=== PATIENT | female | born 1960 | race Caucasian/White ===

== ENCOUNTER 2021-03-12 13:15 | Inpatient (IN) | payer MEDICARE, MEDICAID, SELFPAY ==
[2021-03-12] VITALS (7 sets, daily range): BP systolic 100–161; BP diastolic 55–85; PULSE 65–90; RESP 18–28; TEMP 36.7–39.6; O2SAT 92–96; BMI 61.5
--- NOTE | ~2021-03-12 | XR_ITS ---
EXAMINATION: XR chest 1V portable DATE: 03/12/2021 14:25 INDICATION: Cough. TECHNIQUE: A single frontal view of the chest was obtained. COMPARISON: Chest single view 02/27/2017, chest CT 02/26/2017 FINDINGS: There are airspace opacities in all lung zones bilaterally. No pleural effusion or pneumoth orax. Cardiomegaly is noted. IMPRESSION: 1. Diffuse lung disease, consistent with pulmonary edema versus pneumonia. 2. Cardiomegaly. Reviewed, dictated and finalized at location A. RUMENT MAN
--- NOTE | ~2021-03-12 | CT_ITS ---
EXAMINATION: CTA chest PE protocol EXAM DATE: 03/12/2021 17:28 INDICATION: Pulmonary emboli. Low oxygen saturation. COVID pneumonia. TECHNIQUE: Spiral CTA of the chest (pulmonary arteries) was performed with 100 cc Omnipaque 350 intr avenous contrast injection. Images were acquired during the pulmonary arterial phase. Coronal maxi mum intensity projection 3D-reconstructions were created by the technologist on dedicated workstation . Axial, coronal and sagittal reformatted images were reviewed. The dose-length product (DLP) for t his examination was 1080.02 mGy-cm. The exposure was tailored according to patient size (auto mA ex posure control), and iterative reconstruction (ASIR) was used as additional dose reduction technique. Comparison is made to prior examination from 02/21/2017. FINDINGS: The main, central pulmonary arteries are dilated which can indicate elevated pulmonary cara rial pressure, pulmonary arterial hypertension. There are no pulmonary emboli in the 1st through 3r d order (central and interlobar) pulmonary arteries. Some loss of attenuation in the segmental pulmo nary arteries from respiratory motion, some segmental regions not confidently evaluated. No intralumi nal filling defects identified. No thoracic aortic dissection. Diffuse groundglass airspace diseas e, appearance is consistent with acute COVID pneumonia. There are no pleural or pericardial effusion s. Tracheobronchial tree is patent. There is no mediastinal, hilar or axillary lymphadenopathy. There is no pneumothorax. There is mild cardiomegaly. No evidence of coronary arterial calcificat ion. Cholecystectomy clips. There is mild to moderate thoracic spondylosis without osteoblastic or osteolytic lesions identified. IMPRESSION: 1. Diffuse COVID pneumonia. 2. No pulmonary emboli suspected. 3. Cardiomegaly and dilated pulmonary arteries. Reviewed, dictated and finalized at location A. LE DISPLAY PREPARER
--- NOTE | 2021-03-12 13:31 | ECG_ITS ---
Measurements Intervals [place] Rate: 81 P: 34 WI: 163 QRS: 53 QRSD: 94 T: 19 QT: 374 QTc: 435 Interpretive Statements SINUS RHYTHM BORDERLINE ST-T WAVE ABNORMALITY- INFERIOR LEADS BASELINE ARTIFACT- I, II, III, AVR, AVF, V1 BORDERLINE ECG Electronically Signed On 03-12-2021 17:35:57 HURL SHAKER by Jordon Lancaster D.O.
--- NOTE | 2021-03-12 14:56 | ED.GENADULT ---
HPI - General Adult General Chief complaint: Shortness of Breath/Dyspnea Stated complaint: COVID+ Time Seen by Provider: 03/12/21 13:26 Source: RN notes reviewed History of Present Illness HPI narrative: Patient presents emergency department from [facility] via EMS for shortness of breath. Patient was diagnosed with COVID-19 on March 07 she was noted to be hypoxic on room air today. Patient states she has been feeling short of breath and notes generalized body aches denies any chest pain abdominal pain nausea vomiting patient did not take any Tylenol today Related Data Allergies Allergy/AdvReac Type Severity Reaction Status Date / Time Cephalosporins Allergy Unknown Unknown Verified 03/12/21 18:50 nitrofurantoin Allergy Unknown Unknown Verified 03/12/21 18:50 nitroglycerin Allergy Unknown Unknown Verified 03/12/21 18:50 Penicillins Allergy Unknown Unknown Verified 03/12/21 18:50 Phenothiazines Allergy Unknown Unknown Verified 03/12/21 18:50 promethazine Allergy Unknown Unknown Verified 03/12/21 18:50 [place] Allergy Unknown Unknown Uncoded 03/12/21 18:50 Review of Systems Review of Systems: Gen.: Denies fevers or chills ENT: Denies congestion Respiratory: See HPI CV: Denies chest pain or palpitations GI: Denies abdominal pain nausea, emesis or diarrhea Musculoskeletal: Denies back pain or muscle pain Neuro: Denies numbness, tingling, weakness or focal weakness Skin: Denies rash Except as documented, all other systems reviewed and negative [facility] Past Medical History Medical History (Updated 03/12/21 @ 18:07 by Alexei Lima DO) CHF (congestive heart failure) Schizophrenia Social History Social History (Updated 03/12/21 @ 14:57 by Alexei Lima DO) Smoking status: Never smoker Exam Narrative: APPEARANCE: No acute distress, nontoxic, resting in bed EYES: EOMI HEENT: Normocephalic, atraumatic, OMM RESPIRATORY: No respiratory distress coarse breath sounds throughout the bilateral lung la CARDIOVASCULAR: Regular rate and rhythm without murmurs rubs or gallops. ABDOMINAL: Soft, nontender, nondistended, no rebound or guarding MUSCULOSKELETAl: Moves all extremities. No clubbing, cyanosis or edema. NEURO: Awake and alert x 1. Following commands, speech normal, no focal deficits SKIN:: Warm, dry. No rashes lesions or abrasions PSYCHIATRIC: Normal affect/mood, Course Course Emergency Course: Patient on 9 L nasal cannula the patient does intermittently try to take off her oxygen I discussed with the patient the need to keep her oxygen on Patient is temperature is downtrending but continues to have low-grade temp we will give Toradol at this time Discussed with patient's sister and updated Discussed with Dr. Wright presentation work-up agrees with admission at this time. Agrees with plan start patient on Decadron as well as remdesivir Discussed with patient and family results of workup and diagnosis. Discussed need for admission. Patient and family understand and agree to current treatment plan Vital Signs Vital signs: Vital Signs Temperature 103.2 F H 03/12/21 13:48 Pulse Rate 90 03/12/21 13:48 Respiratory Rate 28 H 03/12/21 13:48 Blood Pressure 146/55 H 03/12/21 13:48 Pulse Oximetry 95 03/12/21 13:48 Temperature 100.7 F H 03/12/21 18:34 Pulse Rate 74 03/12/21 18:34 Respiratory Rate 28 H 03/12/21 18:34 Blood Pressure 124/79 03/12/21 18:34 Pulse Oximetry 95 03/12/21 18:34 Medical Decision Making Vital Signs Vital Signs: Vital Signs Temperature 103.2 F H 03/12/21 13:48 Pulse Rate 90 03/12/21 13:48 Respiratory Rate 28 H 03/12/21 13:48 Blood Pressure 146/55 H 03/12/21 13:48 Pulse Oximetry 95 03/12/21 13:48 Temperature 100.7 F H 03/12/21 18:34 Pulse Rate 74 03/12/21 18:34 Respiratory Rate 28 H 03/12/21 18:34 Blood Pressure 124/79 03/12/21 18:34 Pulse Oximetry 95 03/12/21 18:34 Lab Data Result diagrams: 03/12/21 14:57
[2021-03-12 15:12] LABS: Basophils Percent Auto 0.4 % (0.2-1.2); Hematocrit 39.9 % (37.0-47.0); Hemoglobin 11.9 g/dL (12.0-15.0); Immature Granulocyte Absolute 0.06 K/mm3 (0.00-0.031); Immature Granulocyte Percent A 0.8 % (0-0.5); Lymphocytes Percent Auto 8.2 % (18.3-44.2); Mean Corpuscular HGB Conc 29.8 g/dl (32-36); Mean Corpuscular Hemoglobin 26.5 pg (26-34); Mean Corpuscular Volume 88.9 fl (80-100); Mean Platelet Volume 11.8 fl (7.4-10.4); Monocytes Absolute Auto 0.3 K/mm3 (0.1-0.6); Monocytes Percent Auto 3.4 % (2.6-8.5); Neutrophils Absolute Auto 6.4 K/mm3 (1.3-6.7); Neutrophils Percent Auto 87.2 % (45.5-73.1); Platelet Count Result 122 k/mm3 (150-375); Red Blood Count 4.49 M/mm3 (4.2-5.4); Red Cell Distribution Width 15.9 % (11.5-14.5); White Blood Count 7.4 K/mm3 (4.5-10.0)
[2021-03-12 15:24] LABS: INR 1.1
[2021-03-12 15:25] LABS: Partial Thromboplastin Time 37.4 SECONDS (22.3-36.8)
[2021-03-12 15:27] LABS: Hypochromasia 1+ (NORMAL); Platelet Estimate Decreased (Adequate)
[2021-03-12 15:28] LABS: Ovalocytes 1+ (NORMAL)
[2021-03-12 15:40] LABS: D Dimer 2.47 ug/mL (<0.48)
[2021-03-12 16:01] LABS: Alanine Aminotransferase 21 U/L (4-35); Albumin Level 3.4 g/dL (3.5-5.1); Alkaline Phosphatase 72 U/L (38-126); Anion Gap 5 mmol/L (8-16); Aspartate Amino Transferase 45 U/L (14-36); Bilirubin,Total 0.4 mg/dL (0.2-1.3); Blood Urea Nitrogen 21 mg/dL (7-17); CRP 28.8 mg/dL (<1.0); Calcium 8.1 mg/dL (8.4-10.2); Carbon Dioxide 32 mmol/L (22-30); Chloride 103 mmol/L (98-107); Estimated CRCL calculation 86 ml/min; Estimated Glomerular Filt Rate > 60; Glucose 96 mg/dL (65-110); Lactate Dehydrogenase 1148 U/L (313-618); Potassium 3.9 mmol/L (3.4-5.0); Sodium 140 mmol/L (137-145)
[2021-03-12] MEDS: KETOROLAC 30 MG/ML VIAL (*BKC) IV PUSH (19:36)
[2021-03-12] MEDS: REMDESIVIR 200 MG/NS 250 ML 200 MG/250 ML BAG 250 MG IVPB (21:38)
[2021-03-13] VITALS (7 sets, daily range): BP systolic 108–143; BP diastolic 56–72; PULSE 52–72; RESP 16–22; TEMP 36.1–37; O2SAT 88–95
--- NOTE | 2021-03-13 | ECHO_ITS ---
Patient Info Name: Sammie Saenz Age: 60 years : 1960 Gender: Female Ht: 62 in Wt: 336 lbs BSA: 2.69 m2 HR: 65 bpm BP: 133 / 56 mmHg Heart Rhythm: Sinus Rhythm Technical Quality: Other Exam Date: 03/13/2021 1:06 PM Exam Location: [facility] Pulmonary Exam Room: [facility] Patient Status: Inpatient Admit Date: 03/12/2021 Staff Ordering Physician: Lona Moseley DO Production Assistant: Sara Rehman RDCS Attending Provider: Jae Wright DO Referring Physician: Lorelei BAKER; Exam Type: CA echo doppler color flow Study Info Indications - murmur cardiolmegaly Complete two-dimensional, color flow and Doppler transthoracic echocardiogram is performed. limited views. Summary 1. Complete two-dimensional, color flow and Doppler transthoracic echocardiogram is performed. 2. Normal left ventricular size and systolic function. 3. Mildly enlarged right ventricle. 4. Mild fibronodular thickening of left coronary cusp of the aortic valve. No stenosis. Left Ventricle Left ventricular chamber dimension is normal. Left ventricular systolic function is normal, estimated at 55-60%. The left ventricular diastolic function is grade I diastolic dysfunction. Right Ventricle Right ventricular chamber dimension is mildly enlarged. Right ventricular systolic function is normal. Left Atria Left atrial chamber dimension is normal. Right Atria Right atrial chamber dimension is normal. Aortic Valve The aortic valve is trileaflet. There is mild aortic valve sclerosis. Pulmonic Valve The pulmonic valve is not well visualized. Mitral Valve The mitral valve has normal leaflets. Tricuspid Valve The tricuspid valve leaflets are not well visualized. Pericardium/Pleural The pericardium appears normal. Aorta The aortic root size at the sinus of Valsalva is normal. Left Ventricular Outflow Tract Name Value Normal LVOT 2D LVOT Diameter 2.1 cm Pulmonic Valve Name Value Normal PV Doppler PV Peak Gradient 4 mmHg Mitral Valve Name Value Normal MV Doppler MV Decel [place] 175 cm/s2 MV PHT 66 ms MV Area (PHT) 3.3 cm2 4.0-5.0 MV Diastolic Function MV E Peak Velocity 40 cm/s MV A Peak Velocity 68 cm/s MV E/A 0.6 MV Decel Time 227 ms Tricuspid Valve Name Value Normal --
--- NOTE | 2021-03-13 06:07 | ADMGEN ---
This patient, Sammie Saenz, was admitted to 3 [facility] Surg Room 313-01. Patient/family oriented to hospital policies and general routines including ID bracelet, bed and alarms, visiting hours, pain management, procedures, bathroom and other care routines, personal items, smoking policy, room service/diet, and visiting hours. Information on how to activate the Rapid Response Team has been discussed. Patient/Family are encouraged to report perceived risks to care and to ask questions if they do not understand what they are told or what they should do.
[2021-03-13 07:32] LABS: Basophils Percent Auto 0.2 % (0.2-1.2); Hematocrit 39.3 % (37.0-47.0); Hemoglobin 11.7 g/dL (12.0-15.0); Immature Granulocyte Absolute 0.05 K/mm3 (0.00-0.031); Immature Granulocyte Percent A 0.8 % (0-0.5); Lymphocytes Absolute Auto 0.54 K/mm3 (0.9-3.2); Lymphocytes Percent Auto 8.2 % (18.3-44.2); Mean Corpuscular HGB Conc 29.8 g/dl (32-36); Mean Corpuscular Hemoglobin 26.4 pg (26-34); Mean Corpuscular Volume 88.5 fl (80-100); Mean Platelet Volume 12.3 fl (7.4-10.4); Monocytes Absolute Auto 0.3 K/mm3 (0.1-0.6); Neutrophils Absolute Auto 5.7 K/mm3 (1.3-6.7); Neutrophils Percent Auto 85.8 % (45.5-73.1); Platelet Count Result 130 k/mm3 (150-375); Red Blood Count 4.44 M/mm3 (4.2-5.4); Red Cell Distribution Width 15.9 % (11.5-14.5); White Blood Count 6.6 K/mm3 (4.5-10.0)
[2021-03-13 07:40] LABS: Alanine Aminotransferase 19 U/L (4-35); Albumin Level 3.4 g/dL (3.5-5.1); Alkaline Phosphatase 68 U/L (38-126); Anion Gap 7 mmol/L (8-16); Aspartate Amino Transferase 41 U/L (14-36); Bilirubin,Total 0.4 mg/dL (0.2-1.3); Blood Urea Nitrogen 28 mg/dL (7-17); Calcium 8.1 mg/dL (8.4-10.2); Carbon Dioxide 30 mmol/L (22-30); Chloride 105 mmol/L (98-107); Estimated CRCL calculation 96 ml/min; Estimated Glomerular Filt Rate > 60; Glucose 139 mg/dL (65-110); Potassium 4.7 mmol/L (3.4-5.0); Sodium 142 mmol/L (137-145)
[2021-03-13 07:42] LABS: INR 1.1; Prothrombin Time 13.7 Seconds (11.1-14.7)
--- NOTE | 2021-03-13 08:49 | PM.IMHP ---
H&P: HPI History of Present Illness Date/Time: 03/12/21 23:25 Chief Complaint: COVID, hypoxia Narrative: 60-year-old female with a past medical history paranoid schizophrenia, schizoaffective disorder, PTSD, hypothyroidism, morbid obesity, and diabetes who presented to the ER from care home facility via EMS due to low oxygen saturations. Source of information is ER records and [facility] records. The patient herself is oriented only to person and in his delusional. [facility] staff reported that the patient tested positive for COVID-19 on March 07. She has been having body aches, shortness of breath and cough. In triage the patient was satting 88% on 2 L nasal cannula. Prior to admission to the hospital the patient was requiring 9 L high-flow nasal cannula to maintain oxygen saturations of 92%. When I asked the patient how long her symptoms have been ongoing she states since 1928. She states that she has been having the symptoms since her past life. She was febrile on presentation to the ER with T-max of 103.2?. CHF was not listed on the patient's [facility] records but CT of the chest demonstrates cardiomegaly and dilated pulmonary arteries. Review of Systems Review of Systems: ROS unobtainable: Yes unobtainable due to medical condition (Paranoid schizophrenia) [facility] Past Medical History Medical History Diabetes mellitus GERD (gastroesophageal reflux disease) Hypothyroidism PTSD (post-traumatic stress disorder) Schizophrenia Surgical History Surgical History (Updated 03/13/21 @ 08:59 by Lona Moseley DO) Surgical history unknown Social History Social History (Updated 03/13/21 @ 09:00 by Lona Moseley DO) Social History: Code status: Full code per state form on chart Smoking status: Never smoker Alcohol intake: never Substance use: never Living arrangements: [facility] Additional occupation/education comments: Disabled Spiritual care concerns: No Meds Home Medications and Allergies Home Medications Medication Instructions Recorded Confirmed Type acetaminophen 325 mg PO TID PRN 03/12/21 03/12/21 History asenapine [Secuado] 3.8 mg TRANSDERMAL DAILY 03/12/21 03/12/21 History camphor-menthol [Biofreeze] 1 applic TOPICAL TID PRN 03/12/21 03/12/21 History cholecalciferol (vitamin D3) 125 mcg PO DAILY 03/12/21 03/12/21 History divalproex 500 mg PO BID 03/12/21 03/12/21 History levothyroxine 25 mcg PO DAILY 03/12/21 03/12/21 History menthol [Biofreeze (menthol)] 1 applic TOPICAL TID PRN 03/12/21 03/12/21 History nystatin 1 unit PO Q12-24H PRN 03/12/21 03/12/21 History olanzapine 10 mg PO TID 03/12/21 03/12/21 History paliperidone palmitate [Invega 234 mg IM MONTHLY 03/12/21 03/12/21 History Sustenna] Allergies Allergy/AdvReac Type Severity Reaction Status Date / Time Cephalosporins Allergy Unknown Unknown Verified 03/12/21 18:50 nitrofurantoin Allergy Unknown Unknown Verified 03/12/21 18:50 nitroglycerin Allergy Unknown Unknown Verified 03/12/21 18:50 Penicillins Allergy Unknown Unknown Verified 03/12/21 18:50 Phenothiazines Allergy Unknown Unknown Verified 03/12/21 18:50 promethazine Allergy Unknown Unknown Verified 03/12/21 18:50 [place] Allergy Unknown Unknown Uncoded 03/12/21 18:50 Vital Signs Vital Signs - 24 hr 03/12/21 13:48 03/12/21 16:30 03/12/21 16:43 Temperature 103.2 F H 101.1 F H Pulse Rate 90 74 84 Respiratory Rate 28 H 26 H Blood Pressure 146/55 H 100/85 Pulse Oximetry 95 92 03/12/21 16:53 03/12/21 18:34 03/12/21 19:34 Temperature 100.7 F H Pulse Rate 74 76 Respiratory Rate 28 H 23 H Blood Pressure 124/79 161/71 H Pulse Oximetry 92 95 95 03/12/21 22:00 03/13/21 04:10 Temperature 98.1 F 98.6 F Pulse Rate 65 72 Respiratory Rate 18 20 Blood Pressure 126/63 108/56 L Pulse Oximetry 93 88 L Exam Narrative: PHYSICAL EXAM: WEIGHT 152.7 kg BMI 61.6 G
[2021-03-13] MEDS: DIVALPROEX SODIUM DR 250 MG TABEC 500 MG PO ×2 (09:28→16:27)
[2021-03-13] MEDS: CHOLECALCIFEROL 1,000 UNITS TABLET 5000 UNITS PO (09:29)
[2021-03-13] MEDS: BARICITINIB 2 MG TABLET 4 MG PO (09:29)
[2021-03-13] MEDS: LEVOTHYROXINE SODIUM 25 MCG TABLET PO (09:29)
[2021-03-13] MEDS: ENOXAPARIN 40 MG/0.4 ML SYRINGE SUB-Q (09:30)
[2021-03-13 10:06] LABS: Basophils Percent Auto 0.3 % (0.2-1.2); Hematocrit 42.7 % (37.0-47.0); Hemoglobin 12.3 g/dL (12.0-15.0); Immature Granulocyte Absolute 0.04 K/mm3 (0.00-0.031); Immature Granulocyte Percent A 0.6 % (0-0.5); Immature Platelet Fraction Pct 7.1 % (0.9-11.2); Lymphocytes Absolute Auto 0.52 K/mm3 (0.9-3.2); Lymphocytes Percent Auto 8.3 % (18.3-44.2); Mean Corpuscular HGB Conc 28.8 g/dl (32-36); Mean Corpuscular Hemoglobin 26.4 pg (26-34); Mean Corpuscular Volume 91.6 fl (80-100); Mean Platelet Volume 11.8 fl (7.4-10.4); Monocytes Absolute Auto 0.3 K/mm3 (0.1-0.6); Monocytes Percent Auto 5.1 % (2.6-8.5); Neutrophils Absolute Auto 5.3 K/mm3 (1.3-6.7); Neutrophils Percent Auto 85.7 % (45.5-73.1); Platelet Count Result 123 k/mm3 (150-375); Red Blood Count 4.66 M/mm3 (4.2-5.4); White Blood Count 6.2 K/mm3 (4.5-10.0)
[2021-03-13 10:15] LABS: Alanine Aminotransferase 22 U/L (4-35); Aspartate Amino Transferase 45 U/L (14-36); Estimated CRCL calculation 96 ml/min; Estimated Glomerular Filt Rate > 60
--- NOTE | 2021-03-13 13:31 | PM.IMPN ---
Progress Note: A&P Assessment and Plan (1) Acute respiratory failure with hypoxia: Code(s): J96.01 - Acute respiratory failure with hypoxia Status: Acute (2) COVID-19: Code(s): U07.1 - COVID-19 Status: Acute (3) Schizophrenia: Qualifiers: Schizophrenia type: paranoid schizophrenia Qualified Code(s): F20.0 - Paranoid schizophrenia Code(s): F20.9 - Schizophrenia, unspecified Status: Acute Additional Plan # COVID-19 pneumonia # acute hypoxic hypoxic respiratory failure -positive for COVID-19 on 03/07/2021 -03/13/2021 remdesivir, baricitinib -was bradycardic and Decadron, switching to Solu-Medrol 40mg IV daily -T-max 103.2?, continue Tylenol p.r.n. -vitamins: Vitamin-D -patient started on DuoNebs # paranoid schizophrenia # PTSD -continue home aenapine, depakote, olanzapine # morbid obesity -will need weight loss plan outpatient #Type 2 diabetes -diet controlled? # hypothyroidism -cotninue home levothyroxine Diet: Diabetic diet DVT prophylaxis: Lovenox Code status: Full code Disposition: Pending the oxygen wean Subjective Date/time seen: 03/13/21 13:31 Patient seen examined. She has significant schizophrenia asking if she is going to nursing home. She has a pill rolling tremor in left extremity. Otherwise she is on 9 L of oxygen by nasal cannula. Echocardiogram today pending. She has been started on baricitinib and remdesivir. She is bradycardic and dexamethasone will switch to Solu-Medrol. Review of Systems Review of Systems: ROS unobtainable: Yes unobtainable due to mental status Exam Narrative: - GENERAL: Obese woman breathing comfortably on 9 L oxygen. - EYES: EOMI. Anicteric. - HENT: Moist mucous membranes. - LUNGS: Diminished lung sounds, crackles at bases - CARDIOVASCULAR: Regular rate and rhythm. No murmur. No JVD. - ABDOMEN: Soft, non-tender and non-distended. No palpable masses. - EXTREMITIES: Trace edema. Peripheral pulses 2+. Non-tender. - NEUROLOGIC: No obvious focal neurological deficits. CN II-XII grossly intact. - PSYCHIATRIC: Awake, Alert and oriented to self. Confused, answering questions inappropriately - SKIN: No rashes or lesions. Warm. - LYMPH: No cervical lymphadenopathy. Objective Data Vital Signs Vital Signs: Vital Signs - 24 hr 03/12/21 13:48 03/12/21 16:30 03/12/21 16:43 Temperature 39.6 C H 38.4 C H Pulse Rate 90 74 84 Respiratory Rate 28 H 26 H Blood Pressure 146/55 H 100/85 Pulse Oximetry 95 92 03/12/21 16:53 03/12/21 18:34 03/12/21 19:34 Temperature 38.2 C H Pulse Rate 74 76 Respiratory Rate 28 H 23 H Blood Pressure 124/79 161/71 H Pulse Oximetry 92 95 95 03/12/21 22:00 03/13/21 04:10 03/13/21 08:00 Temperature 36.7 C 37.0 C 36.2 C L Pulse Rate 65 72 57 L Respiratory Rate 18 20 20 Blood Pressure 126/63 108/56 L 133/56 L Pulse Oximetry 93 88 L 95 Intake/Output Intake/Output: Intake & Output 03/10/21 03/11/21 03/12/21 03/13/21 23:59 23:59 23:59 23:59 Intake Total 100 480 Balance 100 480 Meds/Results Medications: Active Medications Generic Name Dose Route Start Last Admin Trade Name Freq PRN Reason Stop Dose Admin Albuterol 5 mg 03/13/21 14:00 Albuterol Sulfate Neb 2.5 Mg/0.5 Ml Inh INHALATION Q6HRT PASCUAL Baricitinib 4 mg 03/13/21 09:00 03/13/21 09:29 Baricitinib 2 Mg Tablet PO 03/26/21 09:01 4 mg DAILY PASCUAL Administration Divalproex Sodium 500 mg 03/13/21 09:00 03/13/21 09:[address] 250 Mg Tabec PO 500 mg BID PASCUAL Administration Enoxaparin Sodium 40 mg 03/13/21 09:00 03/13/21 09:30 Enoxaparin 40 Mg/0.4 Ml Syringe SUB-Q 40 mg DAILY PASCUAL Administration Remdesivir 100 mg in 250 mls @ 250 mls/hr 03/13/21 22:00 IVPB 03/16/21 22:59 Q24H REPLACED BY [facility] Acetaminophen 1,000 mg in 100 mls @ 400 mls/hr 03/12/21 23:00 Ofirmev 1,000 Mg Ivpb IVPB 03/13/21 22:59 Q6H PRN Mild Pain (1-3) or Fever Ipratro
[2021-03-14] VITALS (12 sets, daily range): BP systolic 119–143; BP diastolic 58–94; PULSE 50–67; RESP 16–28; TEMP 36.2–37.4; O2SAT 80–95
[2021-03-14] MEDS: REMDESIVIR 100 MG/NS 250 ML 100 MG/250 ML BAG 250 MG IVPB ×2 (00:43→22:25)
[2021-03-14] MEDS: IPRATROPIUM BR 0.02% INH SOLN 0.5 MG/2.5 ML VIAL INHALATION ×3 (02:16→21:14)
[2021-03-14] MEDS: ALBUTEROL SULFATE NEB 2.5 MG/0.5 ML INH 5 MG INHALATION ×3 (02:16→21:14)
[2021-03-14] MEDS: LEVOTHYROXINE SODIUM 25 MCG TABLET PO (05:46)
[2021-03-14 07:08] LABS: Basophils Percent Auto 0.2 % (0.2-1.2); Hematocrit 40.2 % (37.0-47.0); Hemoglobin 11.8 g/dL (12.0-15.0); Immature Granulocyte Absolute 0.04 K/mm3 (0.00-0.031); Immature Granulocyte Percent A 0.7 % (0-0.5); Lymphocytes Absolute Auto 1.12 K/mm3 (0.9-3.2); Lymphocytes Percent Auto 20.9 % (18.3-44.2); Mean Corpuscular HGB Conc 29.4 g/dl (32-36); Mean Corpuscular Hemoglobin 26.6 pg (26-34); Mean Corpuscular Volume 90.7 fl (80-100); Mean Platelet Volume 12.5 fl (7.4-10.4); Monocytes Absolute Auto 0.4 K/mm3 (0.1-0.6); Monocytes Percent Auto 7.4 % (2.6-8.5); Neutrophils Absolute Auto 3.8 K/mm3 (1.3-6.7); Neutrophils Percent Auto 70.8 % (45.5-73.1); Nucleated Red Blood Cells Perc 0.4 % (0.0-0.2); Platelet Count Result 128 k/mm3 (150-375); Red Blood Count 4.43 M/mm3 (4.2-5.4); Red Cell Distribution Width 15.5 % (11.5-14.5); White Blood Count 5.4 K/mm3 (4.5-10.0)
[2021-03-14 07:12] LABS: Alanine Aminotransferase 19 U/L (4-35); Albumin Level 3.3 g/dL (3.5-5.1); Alkaline Phosphatase 67 U/L (38-126); Anion Gap 9 mmol/L (8-16); Aspartate Amino Transferase 40 U/L (14-36); Bilirubin,Total 0.4 mg/dL (0.2-1.3); Blood Urea Nitrogen 34 mg/dL (7-17); Calcium 8.2 mg/dL (8.4-10.2); Carbon Dioxide 31 mmol/L (22-30); Chloride 100 mmol/L (98-107); Estimated CRCL calculation 109 ml/min; Estimated Glomerular Filt Rate > 60; Glucose 160 mg/dL (65-110); Potassium 4.6 mmol/L (3.4-5.0); Sodium 140 mmol/L (137-145)
[2021-03-14] MEDS: CHOLECALCIFEROL 1,000 UNITS TABLET 5000 UNITS PO (09:19)
[2021-03-14] MEDS: BARICITINIB 2 MG TABLET 4 MG PO (09:19)
[2021-03-14] MEDS: ENOXAPARIN 40 MG/0.4 ML SYRINGE SUB-Q (09:19)
[2021-03-14] MEDS: DIVALPROEX SODIUM DR 250 MG TABEC 500 MG PO ×2 (09:20→16:27)
[2021-03-14] MEDS: methylPREDNISolone SOD SUCC 40 MG VIAL IV PUSH (09:20)
--- NOTE | 2021-03-14 11:32 | PCRCNOTE ---
Past window of treatment time.
--- NOTE | 2021-03-14 14:27 | PM.IMPN ---
Progress Note: A&P Assessment and Plan (1) Acute respiratory failure with hypoxia: Code(s): J96.01 - Acute respiratory failure with hypoxia Status: Acute (2) COVID-19: Code(s): U07.1 - COVID-19 Status: Acute (3) Schizophrenia: Qualifiers: Schizophrenia type: paranoid schizophrenia Qualified Code(s): F20.0 - Paranoid schizophrenia Code(s): F20.9 - Schizophrenia, unspecified Status: Acute Additional Plan # COVID-19 pneumonia # acute hypoxic hypoxic respiratory failure -positive for COVID-19 on 03/07/2021 -03/13/2021 remdesivir, baricitinib -doing well on the Solu-Medrol 40 mg IV daily, will continue for 10 days -Tylenol p.r.n., fevers have come down -vitamins: Vitamin-D -patient started on DuoNebs -wean oxygen as tolerated keep oxygen saturation greater 90%, down to 7 L today nasal cannula # paranoid schizophrenia # PTSD -continue home aenapine, depakote, olanzapine # morbid obesity -will need weight loss plan outpatient #Type 2 diabetes -diet controlled? No home diabetes medications # hypothyroidism -continue home levothyroxine Diet: Diabetic diet DVT prophylaxis: Lovenox Code status: Full code Disposition: Pending the oxygen wean, down to 7 L Subjective Date/time seen: 03/14/21 14:28 Patient seen examined. She has schizophrenia which is very severe. She asked for a green mask which I discussed with nurse. She is on 7 L of oxygen down from 9 yesterday. Continue COVID-19 treatment plan. Review of systems unreliable, patient denies any focal complaints. Review of Systems Review of Systems: All systems reviewed & are unremarkable except as noted in HPI and below ROS unobtainable: Yes unobtainable due to medical condition Exam Narrative: - GENERAL: Obese woman breathing comfortably on 7 L oxygen. - EYES: EOMI. Anicteric. - HENT: Moist mucous membranes. - LUNGS: Diminished lung sounds - CARDIOVASCULAR: Regular rate and rhythm. No murmur. No JVD. - ABDOMEN: Soft, non-tender and non-distended. No palpable masses. - EXTREMITIES: Trace edema. Peripheral pulses 2+. Non-tender. - NEUROLOGIC: No obvious focal neurological deficits. CN II-XII grossly intact. - PSYCHIATRIC: Awake, Alert and oriented to self. Confused, answering questions inappropriately. Significant schizophrenia - SKIN: No rashes or lesions. Warm. - LYMPH: No cervical lymphadenopathy. Objective Data Vital Signs Vital Signs: Vital Signs - 24 hr 03/13/21 15:24 03/13/21 16:00 03/13/21 20:00 Temperature 36.4 C L 36.1 C L Pulse Rate 58 L 59 L Respiratory Rate 22 H 18 Blood Pressure 124/72 143/71 H Pulse Oximetry 93 93 90 03/13/21 20:15 03/13/21 23:55 03/14/21 08:00 Temperature 36.1 C L 36.4 C Pulse Rate 59 L 52 L 50 L Respiratory Rate 18 16 24 H Blood Pressure 126/63 119/94 H Pulse Oximetry 90 90 92 03/14/21 11:34 03/14/21 11:46 03/14/21 12:00 Temperature 36.5 C Pulse Rate 54 L 55 L Respiratory Rate 18 28 H Blood Pressure 135/64 Pulse Oximetry 90 92 Intake/Output Intake/Output: Intake & Output 03/11/21 03/12/21 03/13/21 03/14/21 23:59 23:59 23:59 23:59 Intake Total 100 1940 990 Balance 100 1940 990 Meds/Results Medications: Active Medications Generic Name Dose Route Start Last Admin Trade Name Freq PRN Reason Stop Dose Admin Albuterol 5 mg 03/13/21 14:00 03/14/21 11:34 Albuterol Sulfate Neb 2.5 Mg/0.5 Ml Inh INHALATION 5 mg Q6HRT PASCUAL Administration Baricitinib 4 mg 03/13/21 09:00 03/14/21 09:19 Baricitinib 2 Mg Tablet PO 03/26/21 09:01 4 mg DAILY PASCUAL Administration Divalproex Sodium 500 mg 03/13/21 09:00 03/14/21 09:[address] 250 Mg Tabec PO 500 mg BID PASCUAL Administration Enoxaparin Sodium 40 mg 03/13/21 09:00 03/14/21 09:19 Enoxaparin 40 Mg/0.4 Ml Syringe SUB-Q 40 mg DAILY PASCUAL Administration Remdesivir 100 mg in 250 mls @ 250 mls/hr 03/13/21 22:00 03/14/21 00:43 IVPB 0
--- NOTE | 2021-03-14 15:21 | PC.NURSE ---
MD Wright informed this shift pt BUN continuous to trend upward, continue to monitor at this time. Pt continued on ollumiant and remdesivir for covid.
--- NOTE | 2021-03-14 15:28 | PC.NURSE ---
Called back Apolinar from [facility], , no answer, awaiting call back.
--- NOTE | 2021-03-14 17:38 | PC.NURSE ---
MD Wright informed pt currently on 15 L HF and 15 L non-rebreather, 02 saturation at 90-92%, will continue to monitor.
--- NOTE | 2021-03-14 17:40 | PC.NURSE ---
called pt family contact Georgie and informed her of change in pt condition, pt currently on 15 L HF and 15 L non-rebreather.
--- NOTE | 2021-03-14 23:00 | PC.NURSE ---
Respiratory noted that patient's saturations are in the 80s on 15 L HF oxygen and 15 L NRB. Technical Support 1 Software Engineer made aware. Pattern Technician. Patient initiated on AirVo by respiratory therapist her firmware manager. Patient to be moved to IMU.
[2021-03-15] VITALS (29 sets, daily range): BP systolic 115–168; BP diastolic 46–96; PULSE 41–111; RESP 20–39; TEMP 36.6–36.8; O2SAT 88–98
--- NOTE | 2021-03-15 00:54 | PC.NURSE ---
This patient, Sammie Saenz, was received from [ [id number]] on 03/15/21 at 0034. Patient/family oriented to unit policies and routines
[2021-03-15] MEDS: ALBUTEROL SULFATE NEB 2.5 MG/0.5 ML INH 5 MG INHALATION ×4 (01:42→21:04)
[2021-03-15] MEDS: IPRATROPIUM BR 0.02% INH SOLN 0.5 MG/2.5 ML VIAL INHALATION ×4 (01:42→21:04)
--- NOTE | 2021-03-15 01:53 | PC.NURSE ---
RN called patient's sister Georgie and updated on respiratory status. Discussed ventilator and code status, Sister insisted talking to patient, phone held up to patient's ear and patient and sister were able to talk. Patient states she is a fighter and sister wants to keep her a full code.
[2021-03-15 05:12] LABS: Basophils Percent Auto 0.2 % (0.2-1.2); Hematocrit 39.4 % (37.0-47.0); Hemoglobin 11.9 g/dL (12.0-15.0); Immature Granulocyte Absolute 0.06 K/mm3 (0.00-0.031); Lymphocytes Absolute Auto 1.31 K/mm3 (0.9-3.2); Mean Corpuscular HGB Conc 30.2 g/dl (32-36); Mean Corpuscular Hemoglobin 26.5 pg (26-34); Mean Corpuscular Volume 87.8 fl (80-100); Monocytes Absolute Auto 0.5 K/mm3 (0.1-0.6); Monocytes Percent Auto 7.7 % (2.6-8.5); Neutrophils Absolute Auto 4.1 K/mm3 (1.3-6.7); Neutrophils Percent Auto 69.1 % (45.5-73.1); Nucleated Red Blood Cells Perc 0.3 % (0.0-0.2); Platelet Count Result 159 k/mm3 (150-375); Red Blood Count 4.49 M/mm3 (4.2-5.4)
[2021-03-15 05:21] LABS: Alanine Aminotransferase 19 U/L (4-35); Albumin Level 3.4 g/dL (3.5-5.1); Alkaline Phosphatase 68 U/L (38-126); Anion Gap 5 mmol/L (8-16); Aspartate Amino Transferase 40 U/L (14-36); Bilirubin,Total 0.6 mg/dL (0.2-1.3); Blood Urea Nitrogen 31 mg/dL (7-17); Calcium 8.6 mg/dL (8.4-10.2); Carbon Dioxide 35 mmol/L (22-30); Chloride 101 mmol/L (98-107); Estimated CRCL calculation 109 ml/min; Estimated Glomerular Filt Rate > 60; Glucose 180 mg/dL (65-110); Potassium 4.7 mmol/L (3.4-5.0); Sodium 141 mmol/L (137-145)
[2021-03-15 05:23] LABS: Prothrombin Time 12.9 Seconds (11.1-14.7)
[2021-03-15 06:23] LABS: Add Urine Microscopic? YES; Appearance Urine Clear (Clear); Bilirubin Urine Negative (Negative); Blood Urine 3+ (Negative); Color Urine Yellow (Yellow); Glucose Urine UA Negative (Negative); Ketones Urine Negative (Negative); Leukocyte Esterase Ur Negative LEU/UL (Negative); Nitrate Urine Negative (Negative); Protein Urine 1+ mg/dL (Negative); RBC Urine >75 /hpf (0-2); Specific Grav Ur 1.024 (1.001-1.035); Squamous Epithelial Cell Urine Moderate /hpf (Few); Urobilinogen Urine Negative mg/dL (<2.0); WBC Clumps Urine Present /HPF
[2021-03-15] MEDS: methylPREDNISolone SOD SUCC 40 MG VIAL IV PUSH (09:18)
[2021-03-15] MEDS: ENOXAPARIN 40 MG/0.4 ML SYRINGE SUB-Q (09:18)
[2021-03-15] MEDS: CHOLECALCIFEROL 1,000 UNITS TABLET 5000 UNITS PO (09:18)
[2021-03-15] MEDS: DIVALPROEX SODIUM DR 250 MG TABEC 500 MG PO (09:18)
[2021-03-15] MEDS: BARICITINIB 2 MG TABLET 4 MG PO (09:18)
--- NOTE | 2021-03-15 11:06 | PM.IMPN ---
Progress Note: A&P Assessment and Plan (1) Acute respiratory failure with hypoxia: Code(s): J96.01 - Acute respiratory failure with hypoxia Status: Acute (2) COVID-19: Code(s): U07.1 - COVID-19 Status: Acute (3) Schizophrenia: Qualifiers: Schizophrenia type: paranoid schizophrenia Qualified Code(s): F20.0 - Paranoid schizophrenia Code(s): F20.9 - Schizophrenia, unspecified Status: Acute Additional Plan # COVID-19 pneumonia # acute hypoxic hypoxic respiratory failure -positive for COVID-19 on 03/07/2021 -03/13/2021 remdesivir, baricitinib -Solu-Medrol 40 mg IV daily, will continue for 10 days -Tylenol p.r.n., fevers have come down -vitamins: Vitamin-D -patient started on DuoNebs -wean oxygen as tolerated keep oxygen saturation greater 90%, up to continuous BiPAP 100% FiO2, oxygen saturation greater than 90% currently however she is very tachypneic, may need to be intubated when she tires out, discussed with [id number]-[id number] Georgie was hesitant to about intubation, if she desaturated to 80s despite being on maximum BiPAP then will call she Spelly about intubation but hold off for now # sinus bradycardia -asymptomatic for heart rhythm, originally thought to be secondary to Decadron however we switch to Solu-Medrol. # paranoid schizophrenia # PTSD -continue home aenapine, depakote, olanzapine # morbid obesity -will need weight loss plan outpatient #Type 2 diabetes -diet controlled? No home diabetes medications # hypothyroidism -continue home levothyroxine Diet: Diabetic diet DVT prophylaxis: Lovenox Code status: Full code Disposition: IMU for continuous BiPAP, if she desaturates she will need to be intubated Subjective Date/time seen: 03/15/21 11:06 Patient seen examined. She is awake and alert on BiPAP continuously, discussed with nurse if they take the BiPAP off just to give medications she desaturates into the 70s. She is BiPAP dependent at this time. We are unable to switch to Airvo. I discussed with the sister medical power privacy attorney Georgie who is hesitant about the ventilator but had a discussion with the patient around 1:00 a.m. when she desaturated. Sammie at that time did not want to give up and was okay with ventilator. Of note this week patient's mother has passed from COVID-19 I believe, at age 93 on BiPAP refusing intubation. I am not sure how well Sammie understands her medical condition considering her schizophrenia, and so we will allow Georgie medical power privacy attorney to make decisions about intubation. Georgie asked me to continue BiPAP for now and I explain to her that I will call her if she desaturates into the 80s despite being on max BiPAP in which we would have to consider intubation. Georgie understands and agrees with plan. Review of Systems Review of Systems: ROS unobtainable: Yes unobtainable due to mental status Exam Narrative: - GENERAL: Obese woman labored breathing on BiPAP at 100% FiO2 - EYES: EOMI. Anicteric. - HENT: Moist mucous membranes. - LUNGS: Diminished lung sounds, no rhonchi, difficult to auscultate. - CARDIOVASCULAR: Bradycardic rate and rhythm. - ABDOMEN: Soft, obese, nontender, nondistended - EXTREMITIES: Trace edema. Peripheral pulses 2+. Non-tender. - NEUROLOGIC: No obvious focal neurological deficits. CN II-XII grossly intact. - PSYCHIATRIC: Awake, Alert and oriented to self. Confused, answering questions inappropriately. Significant schizophrenia - SKIN: No rashes or lesions. Warm. - LYMPH: No cervical lymphadenopathy. Objective Data Vital Signs Vital Signs: Vital Signs - 24 hr 03/14/21 11:34 03/14/21 11:46 03/14/21 12:00 Temperature 36.5 C Pulse Rate 54 L 55 L Respiratory Rate 18 28 H Blood Pressure 135/64 Pulse Oximetry 90 92 03/14/21 16:00 03/14/21 18:02 03/14/21 20:00 Temperature 36.7 C 37.4 C Pulse Rate 55 L 57 L Respiratory Rate 24 H 16 Blood Pressure 140/59 L 126/58 L Pulse Oxi
[2021-03-15] MEDS: REMDESIVIR 100 MG/NS 250 ML 100 MG/250 ML BAG 250 MG IVPB (21:17)
[2021-03-16] VITALS (15 sets, daily range): BP systolic 145–166; BP diastolic 67–93; PULSE 39–116; RESP 20–29; TEMP 36.5–36.6; O2SAT 91–98
[2021-03-16] MEDS: IPRATROPIUM BR 0.02% INH SOLN 0.5 MG/2.5 ML VIAL INHALATION ×2 (03:07→12:05)
[2021-03-16] MEDS: ALBUTEROL SULFATE NEB 2.5 MG/0.5 ML INH 5 MG INHALATION ×2 (03:07→12:05)
[2021-03-16] MEDS: LEVOTHYROXINE SODIUM 25 MCG TABLET PO (05:43)
[2021-03-16 06:47] LABS: Basophils Absolute Auto 0.1 K/mm3 (0.0-0.1); Hematocrit 40.2 % (37.0-47.0); Hemoglobin 11.9 g/dL (12.0-15.0); Immature Granulocyte Absolute 0.25 K/mm3 (0.00-0.031); Immature Granulocyte Percent A 4.8 % (0-0.5); Lymphocytes Percent Auto 23.2 % (18.3-44.2); Mean Corpuscular HGB Conc 29.6 g/dl (32-36); Mean Corpuscular Hemoglobin 26.2 pg (26-34); Mean Corpuscular Volume 88.4 fl (80-100); Mean Platelet Volume 11.8 fl (7.4-10.4); Monocytes Absolute Auto 0.5 K/mm3 (0.1-0.6); Neutrophils Absolute Auto 3.2 K/mm3 (1.3-6.7); Nucleated Red Blood Cells Perc 0.4 % (0.0-0.2); Platelet Count Result 157 k/mm3 (150-375); Red Blood Count 4.55 M/mm3 (4.2-5.4); White Blood Count 5.2 K/mm3 (4.5-10.0)
[2021-03-16 06:48] LABS: Alanine Aminotransferase 24 U/L (4-35); Aspartate Amino Transferase 61 U/L (14-36); Estimated CRCL calculation 109 ml/min; Estimated Glomerular Filt Rate > 60
[2021-03-16 07:46] LABS: INR 1.1; Prothrombin Time 13.8 Seconds (11.1-14.7)
[2021-03-16] MEDS: ENOXAPARIN 40 MG/0.4 ML SYRINGE SUB-Q (11:27)
--- NOTE | 2021-03-16 12:04 | PCRCNOTE ---
Window of time for administration has passed. See next scheduled administration.
--- NOTE | 2021-03-16 12:59 | PM.IMPN ---
Progress Note: A&P Assessment and Plan (1) Acute respiratory failure with hypoxia: Code(s): J96.01 - Acute respiratory failure with hypoxia Status: Acute (2) COVID-19: Code(s): U07.1 - COVID-19 Status: Acute (3) Schizophrenia: Qualifiers: Schizophrenia type: paranoid schizophrenia Qualified Code(s): F20.0 - Paranoid schizophrenia Code(s): F20.9 - Schizophrenia, unspecified Status: Acute Additional Plan #End of life -family opting for hospice as patient is clinically compensating and they do not want intubation # COVID-19 pneumonia # acute hypoxic hypoxic respiratory failure -positive for COVID-19 on 03/07/2021 -03/13/2021 remdesivir, baricitinib -Solu-Medrol 40 mg IV daily -Tylenol p.r.n., fevers have come down -vitamins: Vitamin-D -patient started on DuoNebs -continue continues BiPAP until part of senior electrical designer Georgie arrives, then will switch to hospice and comfort care measures # sinus bradycardia -asymptomatic for heart rhythm, originally thought to be secondary to Decadron however we switch to Solu-Medrol. # paranoid schizophrenia # PTSD -continue home aenapine, depakote, olanzapine -all these medications have been held for decreased mental status # morbid obesity #Type 2 diabetes -no home meds listed # hypothyroidism - home levothyroxine Diet: NPO DVT prophylaxis: Lovenox Code status: DNR/DNI changed 03/15/2021 Disposition: IMU for continuous BiPAP, if she desaturates she will need to be intubated Subjective Date/time seen: 03/16/21 12:59 Patient seen examined. She is still on BiPAP continuously, mentation is decreased significantly. Poorly responsive. She opens her eyes but did not talk today. Family is to come today around 2:00 p.m., flying in from [place]. She is already DNR DNI and will be on hospice. human resources coordinator informed. Nurse does not report any other problems overnight. Review of Systems Review of Systems: ROS unobtainable: Yes unobtainable due to medical condition Exam Narrative: - GENERAL: Morbidly obese woman labored breathing on BiPAP at 100% FiO2, not responsive - EYES: EOMI. Anicteric. - HENT: Moist mucous membranes. - LUNGS: Diminished lung sounds, no rhonchi, difficult to auscultate. - CARDIOVASCULAR: Bradycardic rate and rhythm. - ABDOMEN: Soft, obese, nontender, nondistended - EXTREMITIES: Trace edema. Peripheral pulses 2+. Non-tender. - NEUROLOGIC: Unable to assess, somnolent - PSYCHIATRIC: Somnolent - LYMPH: No cervical lymphadenopathy. Objective Data Vital Signs Vital Signs: Vital Signs - 24 hr 03/15/21 13:27 03/15/21 13:30 03/15/21 13:33 Temperature Pulse Rate 70 68 74 Respiratory Rate 24 H 24 H 24 H Blood Pressure Pulse Oximetry 96 03/15/21 14:00 03/15/21 15:39 03/15/21 16:00 Temperature 36.6 C Pulse Rate 47 L 44 L 52 L Respiratory Rate 31 H Blood Pressure 167/84 H Pulse Oximetry 92 94 03/15/21 16:23 03/15/21 17:21 03/15/21 20:00 Temperature 36.6 C Pulse Rate 70 46 L 48 L Respiratory Rate 22 H 25 H Blood Pressure 149/46 H Pulse Oximetry 96 97 03/15/21 21:00 03/15/21 21:08 03/15/21 22:00 Temperature Pulse Rate 48 L 46 L 56 L Respiratory Rate 31 H 30 H Blood Pressure Pulse Oximetry 96 03/16/21 00:00 03/16/21 02:00 03/16/21 03:07 Temperature 36.5 C Pulse Rate 50 L 49 L 44 L Respiratory Rate 24 H 24 H Blood Pressure 145/75 H Pulse Oximetry 97 97 03/16/21 03:39 03/16/21 04:00 03/16/21 04:44 Temperature 36.5 C Pulse Rate 54 L 50 L 43 L Respiratory Rate 26 H 22 H Blood Pressure 145/76 H Pulse Oximetry 94 93 03/16/21 06:00 03/16/21 07:57 03/16/21 08:00 Temperature 36.6 C Pulse Rate 55 L 42 L 42 L Respiratory Rate 24 H Blood Pressure 166/67 H Pulse Oximetry 98 97 03/16/21 10:00 03/16/21 11:48 03/16/21 12:00 Temperature 36.6 C Pulse Rate 44 L 46 L 48 L Respiratory Rate 20 Blood Pressure 159/93 H Pulse
--- NOTE | 2021-03-16 14:29 | PM.DS ---
DS: Admitting Diagnosis Discharge Date 03/16/2021 Admitting Diagnosis COVID-19 pneumonia, acute hypoxic respiratory failure DS: Discharge Diagnosis Discharge Diagnosis (1) Acute respiratory failure with hypoxia: Code(s): J96.01 - Acute respiratory failure with hypoxia Status: Acute (2) COVID-19: Code(s): U07.1 - COVID-19 Status: Acute (3) Schizophrenia: Qualifiers: Schizophrenia type: paranoid schizophrenia Qualified Code(s): F20.0 - Paranoid schizophrenia Code(s): F20.9 - Schizophrenia, unspecified Status: Acute DS: Summary Hospital Course Reason for hospitalization: Acute hypoxic respiratory failure COVID-19 Hospital Course: Patient is a 52-year-old female past with history of paranoid schizophrenia, schizoaffective disorder, PTSD, hypothyroidism, morbid obesity, diabetes who presents to ED in complaints of dyspnea at nursing facility. Patient was found to have COVID-19 on 03/07/2021. Since admission patient's oxygen requirements have gone up to continuous BiPAP on 03/15/2021. We discussed goals of care with family, YARED Jacques about either intubation for further management COVID-19 or hospice considering her quality of life. Patient has significant comorbidities morbid obesity, paranoid schizophrenia. Family discussed and decided on hospice on 03/16/2021. Will take patient off BiPAP and moved to [facility] inpatient [facility]. Status at Discharge Cognitive/behavioral status at discharge: Schizophrenia, unresponsive at discharge Functional status at discharge: bed bound Overall status at discharge: patient is not back to baseline Time Spent with Patient Time attestation: Total time spent providing and/or coordinating discharge services:35 Time spent: Greater than 30 minutes Exam Narrative: - GENERAL: Morbidly obese woman labored breathing on BiPAP at 100% FiO2, not responsive - EYES: EOMI. Anicteric. - HENT: Moist mucous membranes. - LUNGS: Diminished lung sounds, difficult to auscultate - CARDIOVASCULAR: Bradycardic rate and rhythm. - ABDOMEN: Soft, obese, nontender, nondistended - EXTREMITIES: Trace edema. Peripheral pulses 2+. Non-tender. - NEUROLOGIC: Unable to assess, somnolent, will open up eyes to name - PSYCHIATRIC: Somnolent - LYMPH: No cervical lymphadenopathy. DS: Data Data Completed and Pending Labs on day of discharge: Labs from last 24 hours 03/16/21 03/16/21 03/16/21 06:12 06:12 06:12 WBC 5.2 RBC 4.55 Hgb 11.9 L Hct 40.2 MCV 88.4 MCH 26.2 MCHC 29.6 L RDW 15.0 H Plt Count 157 MPV 11.8 H Immature Gran % (Auto) 4.8 H Neut % (Auto) 61.0 Lymph % (Auto) 23.2 [place] % (Auto) 10.0 H Eos % (Auto) 0.0 Baso % (Auto) 1.0 Lymph # (Auto) 1.20 [place] # (Auto) 0.5 Eos # (Auto) 0.0 Baso # (Auto) 0.1 Abs Immat Gran (auto) 0.25 H Absolute Neuts (auto) 3.2 Absolute Nucleated RBC 0.0 Nucleated RBC % 0.4 H PT 13.8 INR 1.1 Creatinine 0.70 Estim Creat Clear Calc 109 Estimated GFR > 60 AST 61 H ALT 24 Discharge Plan Discharge Attending physician on discharge: Jae Wright Discharging Clinician: Jae Wright Anticipated Discharge Date/Time: 03/16/21 14:26 Patient Disposition: Hospice - Medical Facility Diet: as tolerated Discharge Instructions: Please follow-up with [facility] with Dr. Michaels for end of life care inpatient hospice. Please inform PCP of this hospice decision. Patient Instructions: Hospice Care (GEN), COVID-19 (Coronavirus Disease 2019) (DC), COVID-19 (Coronavirus Disease 2019) (GEN) Patient Language: [place]an Stand Alone Forms: General Discharge Information Follow-up/Referrals: Janene,MD Adriano [Primary Care Provider] - (inform about hospice decision) Chapito Lancaster MD [Physician] - (with [facility]) Discharge Medications: Discontinued acetaminophen 325 mg Tablet 325 mg PO TID PRN (Reaso
== END 2021-03-16 15:19 | disposition hospice, inpatient (51) | DRG 177 ==
LOC: ANHED 18:07 → ANH3MEDSUR 20:48 → ANHIMU 03-14 23:41
PROVIDERS: Internal Medicine; Admitting Provider Student in an Organized Health Care Education/Training Program; Emergency Provider Emergency Medicine; PCP Internal Medicine; Visit Provider Student in an Organized Health Care Education/Training Program
DX: U07.1 COVID-19 (principal); J12.82 Pneumonia due to coronavirus disease 2019; J96.01 Acute respiratory failure with hypoxia; F20.0 Paranoid schizophrenia; Z68.44 Body mass index [BMI] 60.0-69.9, adult; Z66 Do not resuscitate; F43.10 Post-traumatic stress disorder, unspecified; E03.9 Hypothyroidism, unspecified; E66.01 Morbid (severe) obesity due to excess calories; E11.9 Type 2 diabetes mellitus without complications; R00.1 Bradycardia, unspecified
CPT/HCPCS: 36415; 71045; 71275; 80053; 81001; 82565; 83615; 84450; 84460; 85025; 85055; 85380; 85610; 85730; 86140; 87086; 87088; 93005; 93306; 94002; 94003; 94640; 96365; 96375; 99285; A9270; J0131; J1100; J1650; J1885; J2920; Q9967

== ENCOUNTER 2021-03-16 15:00 | HOS | payer OTHER, MEDICARE, MEDICAID, SELFPAY ==
[2021-03-16 15:38] VITALS: BMI 61.4
[2021-03-16] MEDS: LORazepam INJ (*CRX) 2 MG/ML VIAL 1 MG IV PUSH ×3 (16:04→20:04)
[2021-03-16] MEDS: MORPHINE SULFATE (*CRX) 2 MG/ML INJ 1 MG IV PUSH (16:05)
[2021-03-16 16:07] VITALS: O2SAT 12
[2021-03-16] MEDS: MORPHINE SULFATE INJ (*CRX) 50 MG in SODIUM CHLORIDE 0.9% IV 95 ML IV CONT (16:33)
--- NOTE | 2021-03-16 17:23 | PM.IMHP ---
H&P: HPI History of Present Illness Date/Time: 03/16/21 17:23 60-year-old morbidly obese female with a history of Type 2 diabetes hypothyroidism and paranoid schizophrenia was residing at a nursing facility in [facility]. She tested positive for COVID-19 on March 07. She was admitted [facility] with shortness of breath body aches and fever to 103 cough. Patient is drowsy and restless and confused. She has not improved despite supplemental oxygen and appropriate therapy for COVID-19 pneumonia. She remains hypoxic even on BiPAP with FiO2 at 90%. She is unable to eat and drink. She is incontinent. She is dependent for all ADLs. She has a Cruz catheter for urine but is incontinent of bowel. Because of her poor baseline functional status chronic mental illness and poor prognosis with her severe COVID-19 pneumonia her sister who is her power of district attorney wished to admit her to inpatient hospice for uncontrolled dyspnea and restlessness. Six months ago she was residing in a nursing facility. She was oriented to person and place sometimes to time. She was able to make needs known. She has chronic severe paranoia and anxiety. She is dependent for assist with all ADLs including set up for feedings. She had a good appetite with regular diet. She was incontinent of bowel and bladder intermittently. PPS was 40. Chief Complaint: uncontrolled dyspnea and restlessness Review of Systems Review of Systems: ROS unobtainable: Yes unobtainable due to medical condition PMFSH Past Medical History Medical History (Updated 03/16/21 @ 17:41 by Chapito Lancaster MD) Diabetes mellitus GERD (gastroesophageal reflux disease) Hypothyroidism PTSD (post-traumatic stress disorder) Schizophrenia Surgical History Surgical History Surgical history unknown Family History Family History (Updated 03/16/21 @ 17:38 by Chapito Lancaster MD) Father No problems noted. Mother No problems noted. Social History Social History (Updated 03/16/21 @ 17:38 by Chapito Lancaster MD) Social History: [place]. Single. Code status: DNR Smoking status: Never smoker Alcohol intake: never Substance use: never Living arrangements: residential Additional occupation/education comments: Disabled Spiritual care concerns: No Meds Home Medications and Allergies Allergies Allergy/AdvReac Type Severity Reaction Status Date / Time Cephalosporins Allergy Unknown Unknown Verified 03/12/21 18:50 nitrofurantoin Allergy Unknown Unknown Verified 03/12/21 18:50 nitroglycerin Allergy Unknown Unknown Verified 03/12/21 18:50 Penicillins Allergy Unknown Unknown Verified 03/12/21 18:50 Phenothiazines Allergy Unknown Unknown Verified 03/12/21 18:50 promethazine Allergy Unknown Unknown Verified 03/12/21 18:50 C[place]ay Allergy Unknown Unknown Uncoded 03/12/21 18:50 Vital Signs Vital Signs - 24 hr 03/16/21 16:07 Pulse Oximetry 12 L Exam Narrative: morbidly obese female appears older than her stated age. Appears uncomfortable phonating with expiration with mild tachypnea mucous membranes moist neck without JVD chest with diffuse coarse breath sounds heart regular rate and bradycardic abdomen protuberant soft hypoactive bowel sounds extremities without edema musculoskeletal without gross deformity cranial nerves symmetric to inspection Assessment and Plan Assessment and plan (1) Palliative care by specialist: Code(s): Z51.5 - Encounter for palliative care Status: Acute Assessment and Plan: meets criteria for inpatient hospice admission due to requirement for continuous IV morphine for control of dyspnea and intermittent IV lorazepam for control of anxiety and restlessness 1/4 morphine drip increased from 0.5-1 milligrams/hour and bolus increased from 1-2 mg every 2 hours p.r.n. 1/4 lorazepam sc
[2021-03-16] MEDS: MORPHINE SULFATE (*CRX) 2 MG/ML INJ IV PUSH ×2 (17:35→20:01)
[2021-03-16 19:11] VITALS: O2SAT 20
[2021-03-16 20:00] VITALS: BP 70/40; PULSE 75; TEMP 36.5; O2SAT 32
[2021-03-16] MEDS: MORPHINE SULFATE ORAL CONC SOL (*CRX) 10 MG/0.5 ML SYRINGE 5 MG PO (22:37)
[2021-03-16] MEDS: LORazepam (*CRX) 2 MG/ML 30 ML ORAL CONCENTRATE 1 MG SUBLINGUAL (22:37)
[2021-03-17] MEDS: LORazepam INJ (*CRX) 2 MG/ML VIAL 1 MG IV PUSH
--- NOTE | 2021-03-17 15:50 | PM.DDS ---
Discharge Summary Date and Time Date of : 03/17/21 Time of : 00:18 Provider Pronounced By: PIPPA Up/PIPPA Banerjee Probable Cause of Probable Cause of : COVID-19 PNEUMONIA WITH RESPIRATORY FAILURE Summary Hospital Course: ADMITTED TO INPATIENT HOSPICE SERVICE DUE TO UNCONTROLLED DYSPNEA. MEDICATIONS TITRATED TO COMFORT. PATIENT PEACEFULLY. Additional Data Confirmation of as documented by pronouncing clinician: Pupillary Reflex, Palpable Pulses, Response to Stimuli, Heart Tones and Breath Sounds Name of Provider Notified: Brando Time Provider Notified: 00:21 Bar Machine Operator Multiple Spindle Notified: Yes Date [facility] Notified of : 03/17/21 Time [facility] Notified of : 01:01
== END 2021-03-17 00:18 | disposition expired | DRG 951 ==
LOC: ANH3MEDSUR 03-17 06:07 → ANHIMU 03-21 09:34
PROVIDERS: Admitting Provider Internal Medicine; PCP Internal Medicine; Visit Provider Internal Medicine
DX: Z51.5 Encounter for palliative care (principal); U07.1 COVID-19; J12.82 Pneumonia due to coronavirus disease 2019; J96.01 Acute respiratory failure with hypoxia; Z68.44 Body mass index [BMI] 60.0-69.9, adult; F20.0 Paranoid schizophrenia; E11.65 Type 2 diabetes mellitus with hyperglycemia; E66.01 Morbid (severe) obesity due to excess calories; E03.9 Hypothyroidism, unspecified; R32 Unspecified urinary incontinence; K21.9 Gastro-esophageal reflux disease without esophagitis; F43.10 Post-traumatic stress disorder, unspecified; F20.9 Schizophrenia, unspecified; Z66 Do not resuscitate
CPT/HCPCS: A9270; J2060; J2270